=== PATIENT | male | born 1930 | race Caucasian/White ===

== ENCOUNTER → 2017-01-07 | Day surgery (SDC) | payer OTHER ==
[2017-01-02 10:21] VITALS: Ht 160 cm; Wt 84.1 kg
[~2017-01-07] VITALS: Ht 160 cm; Wt 84.1 kg
[~2017-01-07] MED LIST: 500ML BSS 0.3ML EPI 1:1000PF IRRIG ONE; ACETAMINOPHEN 325 MG TAB PO PRN; AMVISC PLUS 0.8ML SYRINGE INT OCU ONE; ATROPINE SULFATE 0.1 MG/ML 5ML SYR IV PRN; EpHEDrine SULFATE INJ 50 MG/ML AMP IV PRN; EpINEphrine INJ 1MG/ML AMP 1 MG/ML AMP ONE; LACTATED RINGER'S 1000ML 500 ML IV SCH; LIDOCAINE 3.5% OPH GEL PER APPLICATION CHARGE ONE; LIDOCAINE HCL 1% MPF 2 ML VIAL ONE; MIDAZOLAM HCL 1 MG/ML 2ML VIAL ONE; OCUCOAT 1 ML SOLN IO ONE; PHENYLEPHRINE HCL 10% OP SOLN PER DROP CHARGE OPR SCH; PROPARACAINE 0.5% OP SOLN PER DROP CHARGE OPR SCH; STERILE IRRIGATING SOLUTION (BSS) 15ML OPR ONE; TOBRAMYCIN/DEXAMETHASONE OPH OINT PER APPLN CHARGE ONE
[2017-01-07] MEDS: PHENYLEPHRINE HCL 2.5% OP SOLN PER DROP CHARGE OPR SCH ×2 (11:05→11:17)
[2017-01-07] MEDS: TROPICAMIDE 1% OP SOLN PER DROP CHARGE OPR SCH ×2 (11:08→11:20)
[2017-01-07] MEDS: CYCLOPENTOLATE HCL 1% OP SOLN PER DROP CHARGE OPR SCH ×2 (11:09→11:22)
[2017-01-07] MEDS: KETOROLAC 0.5% OP SOLN PER DROP CHARGE OPR SCH ×2 (11:11→11:25)
[2017-01-07] MEDS: GATIFLOXACIN OP SOLN PER DROP CHARGE OPR SCH ×2 (11:12→11:27)
--- NOTE | 2017-01-07 11:29 | History & Physical Bridge - [place] ---
H&P Re-Evaluation Bridge Note: I have examined the patient, reviewed the History & Physical and in the interval since the performance of the History & Physical I have noted the following changes of clinical significance: No changes noted
[2017-01-07] MEDS: POVIDONE-IODINE OP SOLN 30 ML BTL ONE ×2 (11:53→11:55)
--- NOTE | 2017-01-07 12:09 | [facility] Operative Report ---
Operative Report Date of Service Jan 07, 2017. Operative Report 1. PREOPERATIVE DIAGNOSIS: Cataract of the right eye. 2. POSTOPERATIVE DIAGNOSIS: Same. 3. PROCEDURE: Phacoemulsification with intraocular lens implantation of the right eye. SURGEON: Dr. Grover Back. ANESTHESIA: Topical Lidocaine gel, 1% Non- Preserved intracameral Lidocaine, and monitored intravenous sedation. INDICATIONS FOR THE PROCEDURE: The patient is a 86 - year-old male with a history of cataract of the right eye causing significant visual impairment. The details of the proposed procedure were explained to the patient who asked appropriate questions and following discussion of all risks, benefits and alternatives agreed to have the procedure done. 4. OPERATION AND FINDINGS: DESCRIPTION OF PROCEDURE: After informed consent was obtained, the patient was brought to the Operating Room at the [facility]. The patient was placed in a supine position and then the right eye was prepped and draped in the usual sterile fashion for intraocular surgery. A drop of topical Lidocaine gel was placed in the operative eye. A wire lid speculum was then placed in the fornices. A corneal paracentesis was then created temporally. The Non-Preserved Lidocaine was then instilled into the anterior chamber. The anterior chamber was then pressurized with viscoelastic. A 2.0 mm clear corneal incision was then created temporally. A cystotome was inserted into the anterior chamber and used to create a tear in the anterior lens capsule. This capsular tear was then used to create a small flap and the flap was dragged in a counterclockwise direction in order to create a continuous curvilinear capsulorrhexis. Hydrodissection was accomplished with balanced salt solution. Phacoemulsification of the lens nucleus was then performed in a standard [id number] technique. The phaco time was 22 seconds with an average power of 9 %. The remaining cortical material was removed using irrigation aspiration. The capsular bag was then filled with viscoelastic. A Bausch & Lomb MI60L +24.5 diopters lens was then loaded into the injector and injected into the capsular bag. The remaining viscoelastic was removed with the irrigation aspiration handpiece. The wound was hydrated and then checked and found to be watertight. The intraocular pressure was checked and found to be adequate. The wire lid speculum was removed and the patient's face was cleaned and dried. TobraDex ointment was placed in the inferior fornix. The patient was discharged to the Recovery Room having tolerated the procedure well. There were no complications. The patient will be seen tomorrow in the office for follow-up. I attest to the content of the Intraoperative Record and any orders documented therein. Any exceptions are noted below.
--- NOTE | 2017-01-07 12:09 | Discharge Instructions-SurgCtr ---
Discharge Instructions Date of Service Jan 07, 2017. Visit Reason for Visit: Right Cataract Discharge Discharge Diagnosis / Problem: cataract Discharge Goals Goal(s): Improve function Activity Recommendations Activity Limitations: per Instructions/Follow-up section Anesthesia . Post Anesthesia Instructions: If you have had General Anesthesia or IV Sedation: * Do not drive today. * Resume driving when surgeon permits. * Do not make important decisions or sign legal documents today. * Call surgeon for: 1. Temperature elevations greater than 101 degrees F. 2. Uncontrollable pain. 3. Excessive bleeding. 4. Persistent nausea and vomiting. 5. Medication intolerance (nausea, vomiting or rash). * For nausea and vomiting use only clear liquids such as: tea, soda, bouillon until nausea subsides, then gradually increase diet as tolerated. * If you have any concerns or questions, call your surgeon's office. If physician is unavailable and it is an emergency, call 911 or go to the nearest emergency room. . Instructions / Follow-Up Instructions / Follow-Up ACTIVITY RECOMMENDATIONS: * No strenuous lifting, jogging or running for 4 days * No swimming or yard work for 1 week. * Limited bending is permitted, such as putting on shoes. RETURN TO SCHOOL/WORK: No work until seen by physician in office. MEDICATIONS: Resume previous medications unless instructed otherwise by your surgeon. This includes eye drops for glaucoma. Zymaxid/Gatifloxacin (emerson cap) - one drop every 2 hours until bedtime Nevanac/Ilevro/Prolensa/Ketorolac (weber cap) - one drop every 4 hours until bedtime Prednisolone (white/pink cap, SHAKE WELL) - one drop every 2 hours until bedtime Starting tomorrow - all 3 drops every 4 hours until seen in the office Optive drops - as needed for discomfort SPECIAL CARE INSTRUCTIONS: * Wear eyeshield when sleeping, for four nights. * You may wear your own glasses or sunglasses while awake. * You may read or watch TV * You may shower and wash your face, but be gentle around the eye and pat dry. * Blurry vision and mild irritation are normal. * Call office if pain is more severe or vision becomes dark at . FOLLOW UP VISIT: Follow-up with Dr Back tomorrow. Diet Recommendations Home Diet: resume previous diet Procedures Procedures Performed: Right Cataract Phacoemulsification With Intraocular Lens Implant Pending Studies Studies pending at discharge: no Medical Emergencies . Who to Call and When: Medical Emergencies: If at any time you feel your situation is an emergency, please call 911 immediately. . Non-Emergent Contact Non-Emergency issues call your: Electronic Warfare Operator . . "Provider Documentation" section prepared by Grover Back. .
[2017-01-07 12:10] VITALS: TEMP 36.8
--- NOTE | 2017-01-07 12:14 | Anesthesia Progress Nt - [facility] ---
Anesthesia Post Op Note Date & Time Jan 07, 2017 at 12:14 Vital Signs Pain Intensity: 0 Vital Signs Past 12 Hours Date Time Temp Pulse Resp B/P (MAP) Pulse Ox O2 Delivery O2 Flow Rate FiO2 01/07/17 12:10 36.8 79 16 135/85 (102) 98 Room Air 01/07/17 10:52 36.3 80 20 173/83 (113) 94 Room Air Notes Mental Status: alert / awake / arousable, participated in evaluation Pt Amnestic to Procedure: Yes Nausea / Vomiting: adequately controlled Pain: adequately controlled Airway Patency, RR, SpO2: stable & adequate BP & HR: stable & adequate Hydration State: stable & adequate Anesthetic Complications: no major complications apparent
[2017-01-07 12:31] VITALS: BP 122/73; PULSE 64; O2SAT 96
== END | disposition home or self-care (01) ==
LOC: X.SURG 10:40
PROVIDERS: ATTEND Ophthalmology
DX: H26.9 Unspecified cataract (principal); J44.9 Chronic obstructive pulmonary disease, unspecified; Z87.891 Personal history of nicotine dependence; Z85.72 Personal history of non-Hodgkin lymphomas; Z82.49 Family history of ischemic heart disease and other diseases of the circulatory system; Z80.3 Family history of malignant neoplasm of breast

== ENCOUNTER → 2017-02-18 | Day surgery (SDC) | payer OTHER ==
[2017-01-22 12:48] VITALS: Ht 160 cm; Wt 84.1 kg
[~2017-02-18] VITALS: Ht 160 cm; Wt 84.1 kg
[~2017-02-18] MED LIST changes: +BSS FLUSH ONE; +FENTANYL CITRATE INJ 50 MCG/1 ML 2 ML VIAL IV PRN; +FENTANYL CITRATE INJ 50 MCG/1 ML 2 ML VIAL ONE; +ONDANSETRON INJ 2 MG/ML 2 ML VIAL IV PRN; +PHENYLEPHRINE HCL 10% OP SOLN PER DROP CHARGE OPL SCH; -PHENYLEPHRINE HCL 10% OP SOLN PER DROP CHARGE OPR SCH; +POVIDONE-IODINE OP SOLN 30 ML BTL ONE; +PROPARACAINE 0.5% OP SOLN PER DROP CHARGE OPL SCH; -PROPARACAINE 0.5% OP SOLN PER DROP CHARGE OPR SCH; -STERILE IRRIGATING SOLUTION (BSS) 15ML OPR ONE
[2017-02-18 07:44] VITALS: TEMP 36.6
[2017-02-18] MEDS: TROPICAMIDE 1% OP SOLN PER DROP CHARGE OPL SCH ×2 (07:52→07:56)
[2017-02-18] MEDS: PHENYLEPHRINE HCL 2.5% OP SOLN PER DROP CHARGE OPL SCH ×2 (07:52→07:55)
[2017-02-18] MEDS: CYCLOPENTOLATE HCL 1% OP SOLN PER DROP CHARGE OPL SCH ×2 (07:53→07:57)
[2017-02-18] MEDS: KETOROLAC 0.5% OP SOLN PER DROP CHARGE OPL SCH ×2 (07:54→07:58)
[2017-02-18] MEDS: GATIFLOXACIN OP SOLN PER DROP CHARGE OPL SCH ×2 (07:55→08:05)
--- NOTE | 2017-02-18 09:08 | Discharge Instructions-SurgCtr ---
Discharge Instructions Date of Service Feb 18, 2017. Visit Reason for Visit: Cataract Left Eye Discharge Discharge Diagnosis / Problem: cataract Discharge Goals Goal(s): Improve function Activity Recommendations Activity Limitations: per Instructions/Follow-up section Anesthesia . Post Anesthesia Instructions: If you have had General Anesthesia or IV Sedation: * Do not drive today. * Resume driving when surgeon permits. * Do not make important decisions or sign legal documents today. * Call surgeon for: 1. Temperature elevations greater than 101 degrees F. 2. Uncontrollable pain. 3. Excessive bleeding. 4. Persistent nausea and vomiting. 5. Medication intolerance (nausea, vomiting or rash). * For nausea and vomiting use only clear liquids such as: tea, soda, bouillon until nausea subsides, then gradually increase diet as tolerated. * If you have any concerns or questions, call your surgeon's office. If physician is unavailable and it is an emergency, call 911 or go to the nearest emergency room. . Instructions / Follow-Up Instructions / Follow-Up ACTIVITY RECOMMENDATIONS: * No strenuous lifting, jogging or running for 4 days * No swimming or yard work for 1 week. * Limited bending is permitted, such as putting on shoes. RETURN TO SCHOOL/WORK: No work until seen by physician in office. MEDICATIONS: Resume previous medications unless instructed otherwise by your surgeon. This includes eye drops for glaucoma. Zymaxid/Gatifloxacin (emerson cap) - one drop every 2 hours until bedtime Nevanac/Ilevro/Prolensa/Ketorolac (weber cap) - one drop every 4 hours until bedtime Prednisolone/Durezol (white/pink cap, SHAKE WELL) - one drop every 2 hours until bedtime Starting tomorrow - all 3 drops every 4 hours until seen in the office Optive drops - as needed for discomfort SPECIAL CARE INSTRUCTIONS: * Wear eyeshield when sleeping, for four nights. * You may wear your own glasses or sunglasses while awake. * You may read or watch TV * You may shower and wash your face, but be gentle around the eye and pat dry. * Blurry vision and mild irritation are normal. * Call office if pain is more severe or vision becomes dark at . FOLLOW UP VISIT: Follow-up with Dr Back tomorrow. Diet Recommendations Home Diet: resume previous diet Procedures Procedures Performed: Left Cataract Phacoemulsification With Intraocular Lens Implant Pending Studies Studies pending at discharge: no Medical Emergencies . Who to Call and When: Medical Emergencies: If at any time you feel your situation is an emergency, please call 911 immediately. . Non-Emergent Contact Non-Emergency issues call your: Optical Mechanic . . "Provider Documentation" section prepared by Grover Back. .
--- NOTE | 2017-02-18 09:08 | [facility] Operative Report ---
Operative Report Date of Service Feb 18, 2017. Operative Report 1. PREOPERATIVE DIAGNOSIS: Cataract of the left eye. 2. POSTOPERATIVE DIAGNOSIS: Same. 3. PROCEDURE: Phacoemulsification with intraocular lens implantation of the left eye. SURGEON: Dr. Grover Back. ANESTHESIA: Topical Lidocaine gel, 1% Non- Preserved intracameral Lidocaine, and monitored intravenous sedation. INDICATIONS FOR THE PROCEDURE: The patient is a 86 - year-old male with a history of cataract of the left eye causing significant visual impairment. The details of the proposed procedure were explained to the patient who asked appropriate questions and following discussion of all risks, benefits and alternatives agreed to have the procedure done. 4. OPERATION AND FINDINGS: DESCRIPTION OF PROCEDURE: After informed consent was obtained, the patient was brought to the Operating Room at the [facility]. The patient was placed in a supine position and then the left eye was prepped and draped in the usual sterile fashion for intraocular surgery. A drop of topical Lidocaine gel was placed in the operative eye. A wire lid speculum was then placed in the fornices. A corneal paracentesis was then created temporally. The Non-Preserved Lidocaine was then instilled into the anterior chamber. The anterior chamber was then pressurized with viscoelastic. A 2.0 mm clear corneal incision was then created temporally. A cystotome was inserted into the anterior chamber and used to create a tear in the anterior lens capsule. This capsular tear was then used to create a small flap and the flap was dragged in a counterclockwise direction in order to create a continuous curvilinear capsulorrhexis. Hydrodissection was accomplished with balanced salt solution. Phacoemulsification of the lens nucleus was then performed in a standard [id number]-egn-guifolt technique. The phaco time was 21 seconds with an average power of 15 %. The remaining cortical material was removed using irrigation aspiration. The capsular bag was then filled with viscoelastic. A Bausch & Lomb MI60L +23.0 diopters lens was then loaded into the injector and injected into the capsular bag. The remaining viscoelastic was removed with the irrigation aspiration handpiece. The wound was hydrated and then checked and found to be watertight. The intraocular pressure was checked and found to be adequate. The wire lid speculum was removed and the patient's face was cleaned and dried. TobraDex ointment was placed in the inferior fornix. The patient was discharged to the Recovery Room having tolerated the procedure well. There were no complications. The patient will be seen tomorrow in the office for follow-up. I attest to the content of the Intraoperative Record and any orders documented therein. Any exceptions are noted below.
--- NOTE | 2017-02-18 09:19 | Anesthesia Progress Nt - [facility] ---
Anesthesia Post Op Note Date & Time Feb 18, 2017 at 09:19 Vital Signs Pain Intensity: 0 Vital Signs Past 12 Hours Date Time Temp Pulse Resp B/P (MAP) Pulse Ox O2 Delivery O2 Flow Rate FiO2 02/18/17 07:44 36.6 72 16 156/95 (115) 93 Room Air Notes Mental Status: alert / awake / arousable, participated in evaluation Pt Amnestic to Procedure: Yes Nausea / Vomiting: adequately controlled Pain: adequately controlled Airway Patency, RR, SpO2: stable & adequate BP & HR: stable & adequate Hydration State: stable & adequate Anesthetic Complications: no major complications apparent
[2017-02-18 09:26] VITALS: BP 138/82; PULSE 67; O2SAT 94
== END | disposition home or self-care (01) ==
LOC: X.SURG 07:11
PROVIDERS: ATTEND Ophthalmology
DX: H26.9 Unspecified cataract (principal); J44.9 Chronic obstructive pulmonary disease, unspecified; Z85.72 Personal history of non-Hodgkin lymphomas